=== PATIENT | female | born 1950 | race Caucasian/White ===

== ENCOUNTER → 2016-04-04 | Outpatient (CLI) | payer BC ==
[2016-04-04 08:47] LABS: ALT 32 U/L (9-52); AST 31 U/L (14-36); Alkaline Phosphatase 53 U/L (38-126); Anion Gap 11 mmol/L; Blood Urea Nitrogen 22 mg/dL (7-17); Calcium 9.3 mg/dL (8.4-10.2); Carbon Dioxide 27 mmol/L (22-30); Chloride 103 mmol/L (98-107); Cholesterol 138 mg/dL (<200); Glucose 161 mg/dL (74-99); HDL Cholesterol 70 mg/dL (40-60); Non-African American GFR(MDRD) >60 (>60 ml/min/1.73 sqM); Potassium 4.5 mmol/L (3.5-5.1); Sodium 141 mmol/L (137-145); Total Bilirubin 1.3 mg/dL (0.2-1.3); Triglycerides 51 mg/dL (<150)
== END | disposition home or self-care (01) ==
LOC: LABWHC1 07:54
PROVIDERS: ATTEND Internal Medicine Endocrinology, Diabetes & Metabolism
DX: E10.65 Type 1 diabetes mellitus with hyperglycemia (principal)
CPT/HCPCS: 36415; 80053; 80061; 82043

== ENCOUNTER → 2016-07-10 | Outpatient (CLI) | payer BC ==
--- NOTE | 2016-07-11 15:48 | MM ---
Reason for exam: screening (asymptomatic). Last mammogram was performed 2 years and 1 month ago. History: Patient is postmenopausal. Family history of breast cancer in maternal grandmother. Physical Findings: A clinical breast exam by your physician is recommended on an annual basis and results should be correlated with mammographic findings. MG Screening Mammo w CAD Bilateral CC and MLO view(s) were taken. XCCL view(s) were taken of the right breast. Prior study comparison: June 15, 2014, bilateral MG screening mammo w CAD. June 09, 2013, bilateral digital screening mammo w/CAD. There are scattered fibroglandular densities. No significant changes when compared with prior studies. ASSESSMENT: Benign, BI-RAD 2 RECOMMENDATION: Routine screening mammogram of both breasts in 1 year.
== END | disposition home or self-care (01) ==
LOC: RADMAMWWP 07:13
PROVIDERS: ATTEND Internal Medicine
DX: Z12.31 Encounter for screening mammogram for malignant neoplasm of breast (principal)

== ENCOUNTER 2016-10-13 08:44 | Emergency (ER) | payer MEDICARE, BC ==
[2016-10-13 09:16] VITALS: RESP 16; TEMP 98
[2016-10-13] MEDS ORDERED: SODIUM CHLORIDE 0.9% 1,000 ML IV STA (10:08)
[2016-10-13] MEDS ORDERED: MECLIZINE 12.5 MG TAB PO STA (10:08)
[2016-10-13] MEDS ORDERED: METOCLOPRAMIDE 5 MG/ML 2 ML VIAL IVP STA (10:54)
--- NOTE | 2016-10-13 11:04 | ED ---
General Adult HPI - General Chief complaint: ENT Stated complaint: Left ear pain/Dizziness Time Seen by Provider: 10/13/16 09:55 Source: patient, RN notes reviewed Mode of arrival: wheelchair Limitations: no limitations - History of Present Illness Initial comments: 66-year-old female presents emergency room chief complaint of left ureter hearing loss. Patient states YESTERDAY SHE IS WATCHING ME SHE HAD SOME RINGING IN HER EARS AND THEN SHE LOST HEARING TO THE LEFT EAR. 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 YOUSSEF. PATIENT STATES LAST NIGHT SHE THAT SHE JUST LOST HEARING TO THE LEFT EAR. PATIENT STATES THAT SHE WENT TO BED THINKING THAT HER SUGARS ARE TACHYCARDIA TO GO AWAY WHEN SHE WOKE UP SHE CONTINUED TO NOT HAVE ANY HEARING TO THE LEFT SIDE. PATIENT STATES THAT SHE DID START TO FEEL SOME DIZZINESS LIKE THE WORLD WAS MADE AROUND HER AND SOME NAUSEA WITH THIS WELL. PATIENT STATES THAT SHE WENT TO WORK AND SHE IS NOT FEELING MUCH BETTER. PATIENT STATES SHE CALLED DR. MADDOX'S OFFICE WHO REFERRED HER TO THE ER BECAUSE SHE WAS UNABLE TO SEE THE PATIENT UNTIL tomorrow. Patient states that she is not currently having any other symptoms. Patient denies any recent fever, chills, shortness of breath, chest pain, back pain, abdominal pain, numbness or tingling , dysuria or hematuria, constipation or diarrhea, headaches or visual changes, or any other current symptoms. - Related Data Home Medications Medication Instructions Recorded Confirmed Calcium Citrate/Vitamin D3 1 tab PO DAILY 10/13/13 10/13/16 [Calcium Citrate - Vit D3 Tab] Cholecalciferol [Vitamin D3] 1,000 unit PO DAILY 10/13/13 10/13/16 Metoprolol Tartrate [Lopressor] 50 mg PO BID 10/13/13 10/13/16 Multivitamins, Thera [Multivitamin 1 tab PO DAILY 10/13/13 10/13/16 (formulary)] Simvastatin [Zocor] 20 mg PO HS 10/13/13 10/13/16 Cetirizine HCl [Zyrtec] 10 mg PO DAILY 10/13/16 10/13/16 Insulin Glulisine (For Pump) 0.01 units SQ-PUMP CONTINUOUS 10/13/16 10/13/16 [Apidra (For Pump)] Lisinopril-Hctz 20-25 mg 1 tab PO DAILY 10/13/16 10/13/16 [Zestoretic 20-25] Previous Rx's Medication Instructions Recorded Aspirin 81 mg PO DAILY #30 chewable 10/14/13 Amoxicillin 500 mg PO Q8H #21 capsule 10/13/16 Meclizine [Antivert] 12.5 mg PO Q6H #20 tablet 10/13/16 Allergies Allergy/AdvReac Type Severity Reaction Status Date / Time Iodinated Contrast- Oral and Allergy Anaphylaxis Verified 10/13/16 09:30 IV Dye Review of Systems ROS Statement: Those systems with pertinent positive or pertinent negative responses have been documented in the HPI. ROS Other: All systems not noted in ROS Statement are negative. Past Medical History Past Medical History: Chest Pain / Angina, Diabetes Mellitus, Hyperlipidemia, Hypertension, Thyroid Disorder History of Any Multi-Drug Resistant Organisms: None Reported Past Surgical History: Heart Catheterization Additional Past Surgical History / Comment(s): left ankle surgery, right shoulder surgery for bone spurs Past Anesthesia/Blood Transfusion Reactions: Postoperative Nausea & Vomiting ( PONV) Past Psychological History: No Psychological Hx Reported Smoking Status: Former smoker Past Alcohol Use History: None Reported Past Drug Use History: None Reported - Past Family History Father Family Medical History: Hypertension Additional Family Medical History / Comment(s): myodysplastic, liver mass Mother Family Medical History: No Reported History General Exam - General Exam Comments Initial Comments: General: The patient is awake and alert, in no distress, and does not appear acutely ill. Eye: Pupils are equal, round and reactive to light, extra-ocular movements are intact; there is normal conjunctiva bilaterally. No signs of icterus. Ears, nose, mouth and throat: There are moist mucous membranes and no oral lesions. Left tympanic primary to show some fluid behind the ear. Patient has loss of air conduction to the left ear but she does have bone conduction on exam. Neck: The neck is supple, there is no tenderness. Cardiovascular: There is a regular rate and rhythm. No murmur, rub or gallop is appreciated. Respiratory: Lungs are clear to auscultation, respirations are non-labored, breath sounds are equal. No wheezes, stridor, rales, or rhonchi. Gastrointestinal: Soft, non-distended, non-tender abdomen without masses or organomegaly noted. There is no rebound or guarding present. No CVA tenderness. Bowel sounds are unremarkable. Back: There is no tenderness to palpation in the midline. There is no obvious deformity. No rashes noted. Musculoskeletal: Normal ROM, no tenderness, There is no pedal edema. There is no calf tenderness or swelling. Sensation intact. Pulses equal bilaterally 2+. Neurological: CN II-XII intact, There are no obvious motor or sensory deficits. Coordination appears grossly intact. Speech is normal. Skin: Skin is warm and dry and no rashes or lesions are noted. Psychiatric: Cooperative, appropriate mood & affect, normal judgment. Limitations: no limitations Course Vital Signs 10/13/16 09:01 Temperature 98 F Pulse Rate 60 Respiratory 16 Rate Blood Pressure 187/84 O2 Sat by Pulse 99 Oximetry EKG Findings - EKG Comments: EKG Findings:: normal sinus rhythm 62 bpm, normal axis, no atopy, no S-T depressions or elevations, Medical Decision Making - Medical Decision Making 66-year-old female presents for loss of hearing to the left ear. At this time patient does have bone conduction intact but no air Into the left ear. There does appear to be fluid behind left ear. Patient's workup was otherwise negative. We discussed patient most likely has a left ear effusion which is causing her hearing impairment. She is in agreement with Dr. Maddox in the morning. We will start her on Antivert and antibiotics for home. We did discuss close follow-up with ENT and she has an appointment in the morning we did discuss return parameters and all the patient's questions. She stated that she understood and she is given the plan. She will be discharged home. - Lab Data Result diagrams: 10/13/16 10:49 10/13/16 10:49 Lab Results 10/13/16 10/13/16 10/13/16 Range/Units 10:49 10:49 10:49 WBC 5.0 (3.8-10.6) k/uL RBC 4.27 (3.80-5.40) m/uL Hgb 12.9 (11.4-16.0) gm/dL Hct 38.3 (34.0-46.0) % MCV 89.8 (80.0-100.0) fL MCH 30.3 (25.0-35.0) pg MCHC 33.8 (31.0-37.0) g/dL RDW 12.9 (11.5-15.5) % Plt Count 191 (150-450) k/uL Neutrophils % 64 % Lymphocytes % 25 % Monocytes % 6 % Eosinophils % 4 % Basophils % 1 % Neutrophils # 3.2 (1.3-7.7) k/uL Lymphocytes # 1.2 (1.0-4.8) k/uL Monocytes # 0.3 (0-1.0) k/uL Eosinophils # 0.2 (0-0.7) k/uL Basophils # 0.0 (0-0.2) k/uL PT 10.3 (9.0-12.0) sec INR 1.0 (<1.2) APTT 22.1 (22.0-30.0) sec Sodium 139 (137-145) mmol/L Potassium 3.9 (3.5-5.1) mmol/L Chloride 104 (98-107) mmol/L Carbon Dioxide 28 (22-30) mmol/L Anion Gap 7 mmol/L BUN 13 (7-17) mg/dL Creatinine 0.82 (0.52-1.04) mg/dL Est GFR (MDRD) Af Amer >60 (>60 ml/min/1.73 sqM) Est GFR (MDRD) Non-Af >60 (>60 ml/min/1.73 sqM) Glucose 78 (74-99) mg/dL Calcium 9.2 (8.4-10.2) mg/dL Total Bilirubin 0.6 (0.2-1.3) mg/dL AST 37 H (14-36) U/L ALT 42 (9-52) U/L Alkaline Phosphatase 66 (38-126) U/L Total Protein 7.0 (6.3-8.2) g/dL Albumin 4.0 (3.5-5.0) g/dL - Radiology Data Radiology results: report reviewed, image reviewed Disposition Clinical Impression: Acute effusion of left ear, Dizziness Disposition: HOME SELF-CARE Condition: Stable Instructions: Dizziness (ED), Serous Otitis Media (ED) Additional Instructions: Please use medication as discussed. Please follow up with family doctor if symptoms have not improved over the next two days. Please return to the emergency room if your symptoms increase or worsen or for any other concerns. Prescriptions: Amoxicillin 500 mg PO Q8H #21 capsule Meclizine [Antivert] 12.5 mg PO Q6H #20 tablet Referrals: Daniel Escalante MD [Primary Care Provider] - 1-2 days Time of Disposition: 11:58
[2016-10-13 11:17] LABS: Basophils % (A) 1 %; CH 30.8; CHCM 34.4; Eosinophils # (A) 0.2 k/uL (0-0.7); Eosinophils % (A) 4 %; HCT 38.3 % (34.0-46.0); HDW 2.32; HGB 12.9 gm/dL (11.4-16.0); Luc # (Auto) 0.07; Luc % (Auto) 1; Lymphocytes # (A) 1.2 k/uL (1.0-4.8); Lymphocytes % (A) 25 %; MCH 30.3 pg (25.0-35.0); MCHC 33.8 g/dL (31.0-37.0); MCV 89.8 fL (80.0-100.0); Mean Platelet Volume 8.4; Monocytes # (A) 0.3 k/uL (0-1.0); Monocytes % (A) 6 %; Neutrophils # (A) 3.2 k/uL (1.3-7.7); Neutrophils % (A) 64 %; RBC 4.27 m/uL (3.80-5.40); RDW 12.9 % (11.5-15.5); WBC (Perox) 4.63
[2016-10-13 11:32] LABS: ALT 42 U/L (9-52); AST 37 U/L (14-36); Alkaline Phosphatase 66 U/L (38-126); Anion Gap 7 mmol/L; Blood Urea Nitrogen 13 mg/dL (7-17); Calcium 9.2 mg/dL (8.4-10.2); Carbon Dioxide 28 mmol/L (22-30); Chloride 104 mmol/L (98-107); Glucose 78 mg/dL (74-99); Non-African American GFR(MDRD) >60 (>60 ml/min/1.73 sqM); Potassium 3.9 mmol/L (3.5-5.1); Sodium 139 mmol/L (137-145); Total Bilirubin 0.6 mg/dL (0.2-1.3)
[2016-10-13 11:33] LABS: Partial Thromboplastin Time 22.1 sec (22.0-30.0); Prothrombin Time 10.3 sec (9.0-12.0)
--- NOTE | 2016-10-13 11:49 | CT ---
EXAMINATION TYPE: CT brain wo con DATE OF EXAM: 10/13/2016 COMPARISON: NONE HISTORY: Left ear pain, dizziness with nausea CT DLP: 945.5 mGycm Automated exposure control for dose reduction was used. FINDINGS: There is no acute intracranial hemorrhage, mass effect, or midline shift identified. The ventricles and sulci are within normal limits in size. The globes are intact and the visualized sinuses are stuart ar. IMPRESSION: No acute intracranial hemorrhage, mass effect, or midline shift is seen.
[2016-10-13] MEDS ORDERED: ONDANSETRON 4 MG/2 ML VIAL IVP STA (12:02)
[2016-10-13] MEDS ORDERED: DIAZEPAM 5 MG/ML 2 ML SYRINGE IVP STA (12:02)
[2016-10-13 12:46] VITALS: BP 178/78; PULSE 67
[2016-10-13] MEDS ORDERED: ONDANSETRON 4 MG ODT STARTER PACK 2 TAB BTL PO STA (13:26)
== END 2016-10-13 13:38 | disposition home or self-care (01) ==
LOC: EC 08:44
DX: H66.92 Otitis media, unspecified, left ear (principal); R42 Dizziness and giddiness; R11.0 Nausea; E78.5 Hyperlipidemia, unspecified; E11.9 Type 2 diabetes mellitus without complications; I10 Essential (primary) hypertension; Z87.891 Personal history of nicotine dependence; Z79.4 Long term (current) use of insulin; Z79.899 Other long term (current) drug therapy; Z91.041 Radiographic dye allergy status
CPT/HCPCS: 36415; 93005; 80053; 85025; 85610; 85730; 70450; 99284; 96374; 96375 ×2; 96361; J2765; J3360; J2405

== ENCOUNTER → 2016-11-05 | Outpatient (CLI) | payer BC ==
[2016-11-05 11:45] LABS: ALT 33 U/L (9-52); AST 26 U/L (14-36); Alkaline Phosphatase 60 U/L (38-126); Anion Gap 9 mmol/L; Blood Urea Nitrogen 17 mg/dL (7-17); Calcium 9.3 mg/dL (8.4-10.2); Carbon Dioxide 27 mmol/L (22-30); Chloride 102 mmol/L (98-107); Cholesterol 143 mg/dL (<200); Glucose 134 mg/dL (74-99); HDL Cholesterol 60 mg/dL (40-60); Non-African American GFR(MDRD) >60 (>60 ml/min/1.73 sqM); Potassium 4.1 mmol/L (3.5-5.1); Sodium 138 mmol/L (137-145); Total Bilirubin 0.9 mg/dL (0.2-1.3); Total Protein 6.4 g/dL (6.3-8.2)
[2016-11-05 15:39] LABS: Treponemal Ab Non-Reactive (Non-Reactive)
[2016-11-05 16:20] LABS: ANA w/Reflex to Titer NEGATIVE (NEGATIVE)
[2016-11-05 16:28] LABS: Urine Creatinine 100.3 mg/dL
[2016-11-07 14:08] LABS: Lyme IgG/IgM Interp NEGATIVE (NEGATIVE)
[2016-11-10 09:03] LABS: Mis test requested (Blood) Anti-68KD (HSP70)
== END | disposition home or self-care (01) ==
LOC: LABWHC1 07:29
PROVIDERS: ATTEND Otolaryngology
DX: H90.5 Unspecified sensorineural hearing loss (principal); R42 Dizziness and giddiness; H90.A22 Sensorineural hearing loss, unilateral, left ear, with restricted hearing on the contralateral side; E10.65 Type 1 diabetes mellitus with hyperglycemia
CPT/HCPCS: 36415; 80053; 80061; 82043; 82533; 82570; 83516; 84443; 85652; 86038; 86618; 86780

== ENCOUNTER → 2016-11-05 | Outpatient (CLI) | payer BC, MEDICARE ==
--- NOTE | 2016-11-05 10:40 | MR ---
EXAMINATION TYPE: MR iac wo/w con DATE OF EXAM: 11/05/2016 COMPARISON: NONE HISTORY: Hearing loss CONTRAST: Gadavist 8 ml TECHNIQUE: T1-weighted sagittal, diffusion, T2, and FLAIR axial views of the brain are submitted. The high-reso lution T2 axial and postcontrast T1 axial and coronal views of the IACs are submitted. FINDINGS: There is no pathologic enhancement of the seventh and eighth cranial nerve complex. There is no acou stic neuroma. Mild to moderate generalized degenerative change seen. Changes of chronic sinusitis noted. No midline shift or mass effect. Mild changes of chronic mastoiditis. No cerebellopontine angle mass. Nasopharynx and oropharynx symmetric. IMPRESSION: 1. No cerebellopontine angle mass or acoustic schwannoma.
== END | disposition home or self-care (01) ==
LOC: RADMRIMAIN 08:03
PROVIDERS: ATTEND Otolaryngology
DX: H91.92 Unspecified hearing loss, left ear (principal); H93.3X2 Disorders of left acoustic nerve
CPT/HCPCS: 70553; A9581

== ENCOUNTER → 2017-07-21 | Outpatient (CLI) | payer BC ==
[2017-07-21 09:54] LABS: Calcium 9.2 mg/dL (8.4-10.2); Potassium 4.2 mmol/L (3.5-5.1); Total Bilirubin 0.9 mg/dL (0.2-1.3); Total Protein 6.6 g/dL (6.3-8.2)
== END | disposition home or self-care (01) ==
LOC: LABWHC1 08:24
PROVIDERS: ATTEND Internal Medicine Endocrinology, Diabetes & Metabolism
DX: E10.65 Type 1 diabetes mellitus with hyperglycemia (principal)
CPT/HCPCS: 36415; 80053; 80061

== ENCOUNTER → 2017-11-09 | Outpatient (CLI) | payer BC ==
[2017-11-09 08:40] LABS: Albumin 3.6 g/dL (3.5-5.0); Calcium 9.3 mg/dL (8.4-10.2); Potassium 4.3 mmol/L (3.5-5.1); Total Bilirubin 1.2 mg/dL (0.2-1.3); Total Protein 6.5 g/dL (6.3-8.2)
[2017-11-09 17:38] LABS: Hemoglobin A1C 7.8 % (4.0-6.0)
== END | disposition home or self-care (01) ==
LOC: LABWHC1 07:48
PROVIDERS: ATTEND Internal Medicine Endocrinology, Diabetes & Metabolism
DX: E10.65 Type 1 diabetes mellitus with hyperglycemia (principal)
CPT/HCPCS: 36415; 80053; 82043; 82570; 83036; 84443

== ENCOUNTER → 2018-03-10 | Outpatient (CLI) | payer BC ==
[2018-03-10 19:44] LABS: Albumin 4.1 g/dL (3.80-4.90); Albumin/Globulin Ratio 2.05 (1.20-2.10); Anion Gap 6.2 mmol/L (4.00-12.00); Calcium 9.2 mg/dL (8.7-10.3); Carbon Dioxide 31.8 mmol/L (21.6-31.8); Potassium 4.2 mmol/L (3.5-5.5); Total Bilirubin 0.7 mg/dL (0.3-1.2); Total Protein 6.1 g/dL (6.2-8.2)
[2018-03-10 21:04] LABS: Hemoglobin A1C 7.2 % (4.0-6.0)
== END | disposition home or self-care (01) ==
LOC: LABWHC1 07:24
PROVIDERS: ATTEND Internal Medicine Endocrinology, Diabetes & Metabolism
DX: E10.65 Type 1 diabetes mellitus with hyperglycemia (principal)
CPT/HCPCS: 36415; 80053; 82043; 82570; 83036; 84443

== ENCOUNTER → 2018-07-02 | Outpatient (CLI) | payer BC ==
[2018-07-02 16:28] LABS: Albumin 3.9 g/dL (3.80-4.90); Albumin/Globulin Ratio 1.77 (1.60-3.17); Anion Gap 6.6 mmol/L (4.00-12.00); Carbon Dioxide 29.4 mmol/L (21.6-31.8); Globulin 2.2 g/dL (1.6-3.3); LDL Cholesterol,Calculated 80.8 mg/dL (0.0-131.0); Potassium 4.1 mmol/L (3.5-5.5); Total Bilirubin 0.8 mg/dL (0.3-1.2); Total Protein 6.1 g/dL (6.2-8.2); VLDL Calculation 11.2 mg/dL (5.00-40.00)
[2018-07-02 18:50] LABS: Hemoglobin A1C 7.5 % (4.0-6.0)
== END ==
LOC: LABWHC1 07:40
PROVIDERS: ATTEND Internal Medicine Endocrinology, Diabetes & Metabolism
DX: E10.65 Type 1 diabetes mellitus with hyperglycemia (principal)
CPT/HCPCS: 36415; 80053; 80061; 82043; 82570; 83036; 84443

== ENCOUNTER → 2018-11-17 | Outpatient (CLI) | payer BC ==
[2018-11-17 16:53] LABS: African American GFR (CKD) 67.5 (60.0-200.0); Albumin 4.1 g/dL (3.80-4.90); Albumin/Globulin Ratio 1.86 (1.60-3.17); Anion Gap 7.9 mmol/L (4.00-12.00); Calcium 9.2 mg/dL (8.7-10.3); Carbon Dioxide 29.1 mmol/L (21.6-31.8); Chol/HDL Ratio 2.34; Globulin 2.2 g/dL (1.6-3.3); LDL Cholesterol,Calculated 78.2 mg/dL (0.0-131.0); Potassium 3.9 mmol/L (3.5-5.5); Total Protein 6.3 g/dL (6.2-8.2); VLDL Calculation 12.8 mg/dL (5.00-40.00)
== END | disposition home or self-care (01) ==
LOC: LABWHC1 07:39
PROVIDERS: ATTEND Internal Medicine Endocrinology, Diabetes & Metabolism
DX: E10.65 Type 1 diabetes mellitus with hyperglycemia (principal)
CPT/HCPCS: 36415; 80053; 80061; 82043; 82570; 84443

== ENCOUNTER → 2019-03-15 | Outpatient (CLI) | payer BC ==
[2019-03-15 11:29] LABS: African American GFR (CKD) 67.5 (60.0-200.0); Albumin 4.1 g/dL (3.80-4.90); Albumin/Globulin Ratio 1.86 (1.60-3.17); Anion Gap 7.7 mmol/L (4.00-12.00); Calcium 9.3 mg/dL (8.7-10.3); Carbon Dioxide 30.3 mmol/L (21.6-31.8); Chol/HDL Ratio 2.18; Globulin 2.2 g/dL (1.6-3.3); Non-African American GFR(CKD) 58.2 (60.0-200.0); Potassium 4.3 mmol/L (3.5-5.5); Total Bilirubin 0.9 mg/dL (0.2-1.2); Total Protein 6.3 g/dL (6.2-8.2)
[2019-03-15 11:42] LABS: Microalbumin Creatinine Ratio <30 mg/g Creat (0-30); Urine Creatinine 75.2 mg/dL
[2019-03-15 13:17] LABS: Hemoglobin A1C 7.3 % (4.0-6.0)
== END | disposition home or self-care (01) ==
LOC: LABWHC1 07:40
PROVIDERS: ATTEND Internal Medicine Endocrinology, Diabetes & Metabolism
DX: E10.65 Type 1 diabetes mellitus with hyperglycemia (principal)
CPT/HCPCS: 36415; 80053; 80061; 82043; 82570; 83036; 84443

== ENCOUNTER → 2019-09-08 | Outpatient (CLI) | payer BC ==
--- NOTE | 2019-09-08 14:04 | MM ---
Reason for exam: screening (asymptomatic). Last mammogram was performed 1 year and 6 months ago. History: Patient is postmenopausal. Family history of breast cancer in maternal grandmother. Physical Findings: A clinical breast exam by your physician is recommended on an annual basis and results should be correlated with mammographic findings. MG Screening Mammo w CAD Bilateral CC and MLO view(s) were taken. Prior study comparison: March 19, 2018, bilateral MG screening mammo w CAD. July 10, 2016, bilateral MG screening mammo w CAD. The breast tissue is heterogeneously dense. This may lower the sensitivity of mammography. No significant changes when compared with prior studies. ASSESSMENT: Negative, BI-RAD 1 RECOMMENDATION: Routine screening mammogram of both breasts in 1 year.
== END | disposition home or self-care (01) ==
LOC: RADMAMWWP 07:24
PROVIDERS: ATTEND Internal Medicine
DX: Z12.31 Encounter for screening mammogram for malignant neoplasm of breast (principal)
CPT/HCPCS: 77067

== ENCOUNTER → 2020-06-19 | Outpatient (CLI) | payer BC ==
[2020-06-19 18:32] LABS: Hemoglobin A1C 6.9 % (4.0-6.0)
[2020-06-20 02:08] LABS: African American GFR (CKD) 59.3 (60.0-200.0); Albumin 4.2 g/dL (3.80-4.90); Albumin/Globulin Ratio 1.83 (1.60-3.17); Anion Gap 10.8 mmol/L (4.00-12.00); BUN/Creat Ratio 19.09 Ratio (12.00-20.00); Calcium 9.6 mg/dL (8.7-10.3); Carbon Dioxide 23.2 mmol/L (21.6-31.8); Chol/HDL Ratio 2.66; Globulin 2.3 g/dL (1.6-3.3); Non-African American GFR(CKD) 51.2 (60.0-200.0); Potassium 4.3 mmol/L (3.5-5.5); Total Bilirubin 1.1 mg/dL (0.3-1.2); Total Protein 6.5 g/dL (6.2-8.2)
[2020-06-20 21:53] LABS: Urine Creatinine 53.9 mg/dL
== END | disposition home or self-care (01) ==
LOC: LABWHC1 07:56
PROVIDERS: ATTEND Internal Medicine Endocrinology, Diabetes & Metabolism
DX: E10.65 Type 1 diabetes mellitus with hyperglycemia (principal)
CPT/HCPCS: 36415; 80053; 80061; 82043; 82570; 83036; 84443

== ENCOUNTER → 2020-11-13 | Outpatient (CLI) | payer BC ==
--- NOTE | 2020-11-14 12:42 | MM ---
Reason for exam: screening (asymptomatic). Last mammogram was performed 1 year and 2 months ago. History: Patient is postmenopausal. Family history of breast cancer in maternal grandmother. Took hormonal contraceptives for 3 years. Physical Findings: A clinical breast exam by your physician is recommended on an annual basis and results should be correlated with mammographic findings. MG Screening Mammo w CAD Bilateral CC and MLO view(s) were taken. Prior study comparison: September 08, 2019, bilateral MG screening mammo w CAD. March 19, 2018, bilateral MG screening mammo w CAD. July 10, 2016, bilateral MG screening mammo w CAD. The breast tissue is heterogeneously dense. This may lower the sensitivity of mammography. There are benign appearing vascular calcifications bilaterally. There is no discrete abnormality. ASSESSMENT: Negative, BI-RAD 1 RECOMMENDATION: Routine screening mammogram of both breasts in 1 year.
== END | disposition home or self-care (01) ==
LOC: RADMAMWWP 07:40
PROVIDERS: ATTEND Internal Medicine
DX: Z12.31 Encounter for screening mammogram for malignant neoplasm of breast (principal); Z78.0 Asymptomatic menopausal state; Z80.3 Family history of malignant neoplasm of breast; Z79.3 Long term (current) use of hormonal contraceptives
CPT/HCPCS: 77067

== ENCOUNTER → 2021-07-12 | Outpatient (CLI) | payer BC ==
[2021-07-12 11:34] LABS: ALT 22 U/L (8-44); AST 33 U/L (13-35); African American GFR (CKD) 58.9 (60.0-200.0); Albumin/Globulin Ratio 1.43 (1.60-3.17); Alkaline Phosphatase 71 U/L (41-126); BUN/Creat Ratio 13.64 Ratio (12.00-20.00); Calcium 9.4 mg/dL (8.7-10.3); Carbon Dioxide 21.4 mmol/L (20.0-27.5); Chloride 105 mmol/L (96-109); Chol/HDL Ratio 2.28 Ratio; Globulin 2.8 g/dL (1.6-3.3); Glucose 126 mg/dL (70-110); LDL Cholesterol,Calculated 78.2 mg/dL (0.0-131.0); Non-African American GFR(CKD) 50.8 (60.0-200.0); Potassium 4.4 mmol/L (3.5-5.5); Sodium 138 mmol/L (135-145); Total Protein 6.8 g/dL (6.2-8.2); VLDL Calculation 11.52 mg/dL (5.00-40.00)
[2021-07-12 20:50] LABS: Urine Creatinine 70.5 mg/dL (28.0-217.0)
== END | disposition home or self-care (01) ==
LOC: LABWHC1 07:10
PROVIDERS: ATTEND Internal Medicine Endocrinology, Diabetes & Metabolism
DX: E10.65 Type 1 diabetes mellitus with hyperglycemia (principal)
CPT/HCPCS: 36415; 80053; 80061; 82043; 82570; 83036; 84443

== ENCOUNTER → 2021-08-13 | Outpatient (CLI) | payer BC ==
--- NOTE | 2021-08-13 19:00 | BD ---
EXAMINATION TYPE: Axial Bone Density DATE OF EXAM: 08/13/2021 CLINICAL HISTORY: 71 years year old Female. ICD-10 CODE: M85.80 OTH DISRD OF BONE DENSITY AND STRUCT URE Height: 5 FT 1 IN Weight: 163 FRAX RISK QUESTIONS: Alcohol (3 or more units per day): NO Family History (Parent hip fracture): NO Glucocorticoids (More than 3mos): NO (Ex: prednisone, prednisolone, methylprednisolone, dexamethasone, and hydrocortisone). History of Fracture in Adulthood: YES Secondary Osteoporosis: 1. Type 1 Diabetes: YES 2. Hyperthyroidism: NO 3. Menopause before 45: NO 4. Malnutrition: NO 5. Chronic liver disease: NO Rheumatoid Arthritis: NO Current Tobacco Use: NO RISK FACTORS HISTORY OF: Surgery to Spine/Hip(right/left)/Wrist (right/left): NO Family History of Osteoporosis: NO Active: YES Diet low in dairy products/other sources of calcium: NO Postmenopausal woman: YES Take estrogen and/or progesterone medications: NO Lost more than 2 inches in height since high school: NO Frequent falls: NO Poor Health: GOOD Hyperparathyroidism: NO Adrenal Insufficiency: NO MEDICATIONS: Additional Medications: INSULIN, LISINOPRIL, AMLODIPINE, METOPROLOL, SIMVASTATIN, Additional History: EXAM MEASUREMENTS: Bone mineral densitometry was performed using the [employer] System. Bone mineral density as measured about the Lumbar spine is: ----- L1-L4(G/cm2): 1.096 T Score Values are as follows: ----- L1: -0.7 ----- L2: -1.5 ----- L3: -0.6 ----- L4: -0.3 ----- L1-L4: -0.7 Bone mineral density has: DECREASED -8.4 % since study of: 2018 Bone mineral density about the R hip (g/cm2): 0.807 Bone mineral density about the L hip (g/cm2 0.848): T Score values are as follows: -----R Neck: -1.7 -----L Neck: -1.4 -----R Total: -1.6 -----L Total: -1.5 Bone mineral density has: DECREASED -6.6 % since study of: 2018 FRAX%s: The graph provided illustrates a 15.9 % chance for a major osteoporotic fx and a 2.5 % chance for the hips probability for fx in 10 years time. IMPRESSION: Osteopenia (T Score between -2.5 and -1). There is slightly increased risk of fracture and the patient may be considered for treatment. Re-Screen 2-5 years. NOTE: T-SCORE=SD OF THE YOUNG ADULT MEAN.
== END | disposition home or self-care (01) ==
LOC: RADBDWWP 07:18
PROVIDERS: ATTEND Internal Medicine
DX: M85.89 Other specified disorders of bone density and structure, multiple sites (principal)
CPT/HCPCS: 77080

== ENCOUNTER 2021-11-19 07:54 | Day surgery (SDC) | payer BC ==
[2021-11-15 08:52] VITALS: BMI 29.2
[~2021-11-19 07:54] MED LIST: LACTATED RINGERS 1,000 ML IV SCH
[2021-11-19] MEDS ORDERED: LIDOCAINE 1% (10MG/ML) FOR IV START INTRADERMA ONE (08:40)
[2021-11-19 08:48] VITALS: TEMP 97
[2021-11-19 08:52] LABS: Glucose,Whole Blood 149 mg/dL (70-110)
[2021-11-19] MEDS ORDERED: PROPOFOL 10 MG/ML 20 ML VIAL IV ONE (08:54)
--- NOTE | 2021-11-19 08:57 | P.GSHP ---
History of Present Illness H&P Date: 11/19/21 Chief Complaint: Colon cancer screening 71-year-old female here today for screening colonoscopy. Last colonoscopy 10 years ago. No bowel complaints. No family history of colon cancer. Past Medical History Past Medical History: Diabetes Mellitus, Hyperlipidemia, Hypertension Additional Past Medical History / Comment(s): insulin pump/guardian III History of Any Multi-Drug Resistant Organisms: None Reported Past Surgical History: Heart Catheterization, Orthopedic Surgery Additional Past Surgical History / Comment(s): left ankle ORIF, right shoulder surgery for bone spurs, magnet behind left ear for [place], ganglion cyst rt wrist, vazquez cataracts, Past Anesthesia/Blood Transfusion Reactions: Postoperative Nausea & Vomiting (PONV) Smoking Status: Former smoker - Past Family History Father Family Medical History: Cancer Additional Family Medical History / Comment(s): . Mother Family Medical History: Cancer Medications and Allergies Home Medications Medication Instructions Recorded Confirmed Type Calcium Citrate/Vitamin D3 1 tab PO HS 10/13/13 11/15/21 History [Calcium Citrate - Vit D3 Tab] Cholecalciferol [Vitamin D3 (25 1,000 unit PO DAILY 10/13/13 11/15/21 History Mcg = 1000 Iu)] Metoprolol Tartrate [Lopressor] 50 mg PO BID 10/13/13 11/15/21 History Multivitamins, Thera [Multivitamin 1 tab PO DAILY 10/13/13 11/15/21 History (formulary)] Simvastatin [Zocor] 20 mg PO HS 10/13/13 11/15/21 History Aspirin 81 mg PO DAILY #30 chewable 10/14/13 11/15/21 Rx Cetirizine HCl [Zyrtec] 10 mg PO HS 11/15/21 11/15/21 History Insulin Aspart (For Pump) [NovoLOG 0.01 unit SQ-PUMP CONTINUOUS 11/15/21 11/15/21 History (For Pump)] amLODIPine [Norvasc] 5 mg PO DAILY 11/15/21 11/15/21 History lisinopriL [Prinivil] 20 mg PO QAM 11/15/21 11/15/21 History Allergies Allergy/AdvReac Type Severity Reaction Status Date / Time Iodinated Contrast Media Allergy Anaphylaxis Verified 11/19/21 08:27 [Iodinated Contrast- Oral and IV Dye] Surgical - Exam Vital Signs Temp Pulse Resp BP Pulse Ox 97.0 F L 62 16 174/79 99 11/19/21 08:40 11/19/21 08:40 11/19/21 08:40 11/19/21 08:40 11/19/21 08:40 Physical exam: General: Well-developed, well-nourished HEENT: Normocephalic, sclerae nonicteric Abdomen: Nontender, nondistended Extremities: No edema Neuro: Alert and oriented Results - Labs Abnormal Lab Results - Last 24 Hours (Table) 11/19/21 Range/Units 08:40 POC Glucose (mg/dL) 149 H (70-110) mg/dL Assessment and Plan (1) Colon cancer screening Narrative/Plan: Will proceed with colonoscopy at this time Current Visit: Yes Status: Acute Code(s): Z12.11 - ENCOUNTER FOR SCREENING FOR MALIGNANT NEOPLASM OF COLON SNOMED Code(s): 662433905
--- NOTE | 2021-11-19 09:09 | P.PCN ---
Date of Procedure: 11/19/21 Procedure(s) Performed: PREOPERATIVE DIAGNOSIS: Colon cancer screening POSTOPERATIVE DIAGNOSIS: Normal exam PROCEDURE: Colonoscopy ANESTHESIA: MAC SURGEON: Irving Jones M.D. SPECIMENS: None ENDOSCOPIC PROCEDURE: The patient was placed on the endoscopy table in the left decubitus position. The Olympus colonoscope was inserted into the anus and passed under direct visualization to the base of the cecum. The appendiceal orifice was visualized. From that point the scope was slowly withdrawn inspecti ng all surfaces carefully. There were no neoplastic inflammatory or polypoid lesions throughout the cecum, ascending, transverse, descending, sigmoid and rectum. There was no visible diverticulosis noted. Digital rectal examination was normal. The patient was taken to the recovery room in stable condition per anesthesia guidelines. RECOMMENDATIONS: Resume diet. Follow-up colonoscopy 10 years.
[2021-11-19 09:15] VITALS: PULSE 60
[2021-11-19 09:28] VITALS: BP 171/70; RESP 20
== END 2021-11-19 09:45 ==
LOC: ORWHC2ENDO 07:54
PROVIDERS: ATTEND Surgery
DX: Z12.11 Encounter for screening for malignant neoplasm of colon (principal); E11.9 Type 2 diabetes mellitus without complications; E78.5 Hyperlipidemia, unspecified; I10 Essential (primary) hypertension; K91.0 Vomiting following gastrointestinal surgery; Z95.5 Presence of coronary angioplasty implant and graft; Z98.890 Other specified postprocedural states; Z98.41 Cataract extraction status, right eye; Z98.42 Cataract extraction status, left eye; Z87.891 Personal history of nicotine dependence; Z80.9 Family history of malignant neoplasm, unspecified; Z79.82 Long term (current) use of aspirin; Z79.899 Other long term (current) drug therapy; Z79.4 Long term (current) use of insulin; Z91.041 Radiographic dye allergy status
CPT/HCPCS: 45378; J2704

== ENCOUNTER → 2023-06-18 | Outpatient (CLI) | payer BC ==
[2023-06-18 11:20] LABS: Microalbumin Creatinine Ratio <14 mg/g Cr (0-30); Urine Creatinine 88.5 mg/dL (28.0-217.0)
[2023-06-18 11:41] LABS: ALT 19 U/L (8-44); AST 29 U/L (13-35); Albumin 4.1 g/dL (3.8-4.9); Albumin/Globulin Ratio 1.71 Ratio (1.60-3.17); Alkaline Phosphatase 50 U/L (41-126); BUN/Creat Ratio 20.09 Ratio (12.00-20.00); Blood Urea Nitrogen 22.1 mg/dL (9.0-27.0); Calcium 9.4 mg/dL (8.7-10.3); Carbon Dioxide 25.1 mmol/L (21.6-31.8); Chloride 102 mmol/L (96-109); Chol/HDL Ratio 2.14 Ratio; Globulin 2.4 g/dL (1.6-3.3); Glucose 146 mg/dL (70-110); LDL Cholesterol,Calculated 76.3 mg/dL (0.0-131.0); Potassium 4.6 mmol/L (3.5-5.5); Sodium 138 mmol/L (135-145); Total Bilirubin 0.7 mg/dL (0.3-1.2); Total Protein 6.5 g/dL (6.2-8.2); VLDL Calculation 10.92 mg/dL (5.00-40.00)
== END | disposition home or self-care (01) ==
LOC: LABWHC1 07:30
PROVIDERS: ATTEND Internal Medicine Endocrinology, Diabetes & Metabolism
DX: E10.65 Type 1 diabetes mellitus with hyperglycemia (principal)
CPT/HCPCS: 36415; 80053; 80061; 82043; 82570; 83036; 84443

== ENCOUNTER → 2023-12-29 | Outpatient (CLI) | payer BC ==
[2023-12-29 10:40] LABS: ALT 18 U/L (8-44); AST 28 U/L (13-35); Albumin/Globulin Ratio 1.54 Ratio (1.60-3.17); Alkaline Phosphatase 53 U/L (41-126); BUN/Creat Ratio 23.44 Ratio (12.00-20.00); Blood Urea Nitrogen 21.1 mg/dL (9.0-27.0); Calcium 9.1 mg/dL (8.7-10.3); Chloride 102 mmol/L (96-109); Chol/HDL Ratio 2.19 Ratio; Globulin 2.6 g/dL (1.6-3.3); Glucose 99 mg/dL (70-110); LDL Cholesterol,Calculated 82.9 mg/dL (0.0-131.0); Potassium 3.8 mmol/L (3.5-5.5); Sodium 140 mmol/L (135-145); Total Bilirubin 0.6 mg/dL (0.3-1.2); Total Protein 6.6 g/dL (6.2-8.2); VLDL Calculation 10.14 mg/dL (5.00-40.00)
[2023-12-29 21:03] LABS: Microalbumin Creatinine Ratio <23 mg/g Cr (0-30); Urine Creatinine 52.9 mg/dL (28.0-217.0)
== END | disposition home or self-care (01) ==
LOC: LABWHC1 06:53
PROVIDERS: ATTEND Internal Medicine Endocrinology, Diabetes & Metabolism
DX: E10.65 Type 1 diabetes mellitus with hyperglycemia (principal)
CPT/HCPCS: 36415; 80053; 80061; 82043; 82570; 83036; 84443

== ENCOUNTER → 2024-03-23 | Outpatient (CLI) | payer BC ==
--- NOTE | 2024-03-23 07:57 | MM ---
Reason for Exam: Screening (asymptomatic). Last mammogram was performed 1 year(s) and 10 month(s) ago. Patient History: Menarche at age 12. First Full-Term at age 17. Postmenopausal. Patient has history of breast feeding. Patient used Hormonal Contraceptives for 3 years. Maternal grandmother had breast cancer. Risk Values: [place] 5 year model risk: 1.4%. NCI Lifetime model risk: 3.6%. Prior Study Comparison: 09/08/2019 Bilateral Screening Mammogram, [facility]GED WITH [facility]. 11/13/2020 Bilateral Screening Mammogram, MERGED WITH [facility]. 05/01/2022 Bilateral MG screening mammo w CAD, MERGED WITH [facility]. Tissue Density: The breasts are heterogeneously dense, which may obscure small masses. Findings: Analyzed By CAD. In inferior subareolar asymmetric density right MLO view appears more defined. This may represent superimposition shadow but further evaluation is recommended. On the left MLO view, couple areas of asymmetric density posterior central aspect of the breast appear more defined and further evaluation is recommended. No clear correlate on the CC view. Otherwise, no significant change. Overall Assessment: Incomplete: need additional imaging evaluation, BI-RAD 0 Management: Special View Mammogram of both breasts. Diagnostic Breast Ultrasound of both breasts. [facility] will attempt to contact patient to return for supplemental views and ultrasound if indicated. [facility], , 03/23/2024 7:54 AM. Electronically signed and approved by: Steven Flores M.D. Radiologist
--- NOTE | 2024-03-23 12:51 | BD ---
EXAMINATION TYPE: Axial Bone Density DATE OF EXAM: 03/23/2024 CLINICAL HISTORY: 73 years old Female. ICD-10 CODE: M85.80 OSTEOPENIA , Additional History: Height: 61" Weight: 165lbs FRAX RISK QUESTIONS: Alcohol (3 or more units per day): No Family History (Parent hip fracture): No Glucocorticoids (More than 3mos): No (Ex: prednisone, prednisolone, methylprednisolone, dexamethasone, and hydrocortisone). History of Fracture in Adulthood: Yes Secondary Osteoporosis: 1. Type 1 Diabetes: Yes 2. Hyperthyroidism: No 3. Menopause before 45: No 4. Malnutrition: No 5. Chronic liver disease: No Rheumatoid Arthritis: No Current Tobacco Use: No RISK FACTORS HISTORY OF: Hip Fracture (Right/Left): No Spine Fracture: No History of Wrist Fracture: No Surgery to Spine/Hip(right/left)/Wrist (right/left): No MEDICATIONS: Thyroid Medications: No Osteoporosis Medications: No EXAM MEASUREMENTS: Bone mineral densitometry was performed using the [employer] System. Bone mineral density as measured about the Lumbar spine is: ----- L1-L4(G/cm2): 1.083 T Score Values are as follows: ----- L1: -1.5 ----- L2: -1.3 ----- L3: -0.3 ----- L4: -0.6 ----- L1-L4: -0.8 Z Score Values are as follows: ----- L1: -0.1 ----- L2: 0.1 ----- L3: 1.1 ----- L4: 0.8 ----- L1-L4: 0.6 Bone mineral density has: decreased -1.2% since study of: 08/13/2021 Bone mineral density about the R hip (g/cm2): 0.832 Bone mineral density about the L hip (g/cm2): 0.884 T Score values are as follows: -----R Neck: -1.4 -----L Neck: -0.9 -----R Total: -1.4 -----L Total: -1.0 Z Score values are as follows: -----R Neck: 0.2 -----L Neck: 0.7 -----R Total: 0.0 -----L Total: 0.4 Bone mineral density has: increased 5.8% since study of: 08/13/2021 FRAX%s: The graph provided illustrates a 15.7% chance for a major osteoporotic fx and a 2.4% chance f or the hips probability for fx in 10 years time. IMPRESSION: Osteopenia (T Score between -2.5 and -1). There is slightly increased risk of fracture and the patient may be considered for treatment. Re-Screen 2-5 years. NOTE: T-SCORE=SD OF THE YOUNG ADULT MEAN. [facility], , 03/23/2024 12:49 PM
== END | disposition home or self-care (01) ==
LOC: RADMAMWWP 06:53
PROVIDERS: ATTEND Family Medicine
DX: Z12.31 Encounter for screening mammogram for malignant neoplasm of breast (principal); Z78.0 Asymptomatic menopausal state; Z80.3 Family history of malignant neoplasm of breast; R92.333 Mammographic heterogeneous density, bilateral breasts; M85.89 Other specified disorders of bone density and structure, multiple sites
CPT/HCPCS: 77067; 77080

== ENCOUNTER → 2024-04-22 | Outpatient (CLI) | payer BC ==
[2024-04-22 11:06] LABS: ALT 17 U/L (8-44); AST 25 U/L (13-35); Albumin 3.9 g/dL (3.8-4.9); Albumin/Globulin Ratio 1.62 Ratio (1.60-3.17); Alkaline Phosphatase 49 U/L (41-126); Blood Urea Nitrogen 22.6 mg/dL (9.0-27.0); Calcium 9.2 mg/dL (8.7-10.3); Carbon Dioxide 28.1 mmol/L (21.6-31.8); Chloride 102 mmol/L (96-109); Chol/HDL Ratio 2.14 Ratio; Globulin 2.4 g/dL (1.6-3.3); Glucose 101 mg/dL (70-110); LDL Cholesterol,Calculated 74.2 mg/dL (0.0-131.0); Potassium 4.1 mmol/L (3.5-5.5); Sodium 140 mmol/L (135-145); Total Bilirubin 0.7 mg/dL (0.3-1.2); Total Protein 6.3 g/dL (6.2-8.2)
[2024-04-22 18:50] LABS: Microalbumin Creatinine Ratio <17 mg/g Cr (0-30); Urine Creatinine 69.7 mg/dL (28.0-217.0)
== END | disposition home or self-care (01) ==
LOC: LABWHC1 07:59
PROVIDERS: ATTEND Internal Medicine Endocrinology, Diabetes & Metabolism
DX: E10.65 Type 1 diabetes mellitus with hyperglycemia (principal)
CPT/HCPCS: 36415; 80053; 80061; 82043; 82570; 83036; 84443

== ENCOUNTER → 2024-07-11 | Outpatient (CLI) | payer BC ==
[2024-07-11 10:50] LABS: BUN/Creat Ratio 15.91 Ratio (12.00-20.00); Blood Urea Nitrogen 17.5 mg/dL (9.0-27.0); Calcium 9.1 mg/dL (8.7-10.3); Chloride 102 mmol/L (96-109); Glucose 169 mg/dL (70-110); Potassium 4.5 mmol/L (3.5-5.5); Sodium 138 mmol/L (135-145)
== END | disposition home or self-care (01) ==
LOC: LABWHC1 07:02
PROVIDERS: ATTEND Family Medicine
DX: I10 Essential (primary) hypertension (principal)
CPT/HCPCS: 36415; 80048